=== PATIENT | female | born 2005 | race African-American/Black ===

== ENCOUNTER 2023-06-05 05:46 | Emergency (ER) | payer OTHER, SELFPAY ==
--- NOTE | ~2023-06-05 | US_ITS ---
EXAMINATION: US OB <= 14 weeks fetus DATE: 06/05/2023 08:35 INDICATION: 12-13 weeks was taking medication for EAB TECHNIQUE: Real-time pelvic ultrasound utilizing both a transvaginal and transabdominal probe was pe rformed. The interpreting radiologist was not present for the study. COMPARISON: None. FINDINGS: The uterus measures 4.5 x 4.8 x 6.8 cm. The endometrial complex is thickened with slightly heterogen eous echogenicity. There is a small amount of fluid within the endometrial canal but no gestational s ac. A few punctate echogenic foci likely representing calcification in the myometrium of the anterior uterine body which may be related to prior instrumentation. The right ovary measures 3.6 x 1.7 x 1.6 cm. With intramural lesser flow on color Doppler. The left ovary is not definitively identified. A 4 .4 x 1.1 x 1.1 cm ovoid peripherally hypoechoic, centrally isoechoic mass is seen in the left adnexal region which could represent the left ovary but appears also suggests this could represent an iliac chain lymph node with central fatty hilum. There is no free fluid in the pelvis. IMPRESSION: 1. Thickened heterogeneous endometrial complex without evident internal gestational sac. Differential would include early , failed or ectopic . Correlate with clinical histor y, any prior outside imaging and with serial beta-hCG levels. Reviewed, dictated and finalized at location [facility]. IMPRESSION: 1. Thickened heterogeneous endometrial complex without evident internal gestati onal sac. Differential would include early , failed or ectop ic . Correlate with clinical history, any prior outside imaging and wi th serial beta-hCG levels.
[2023-06-05 05:44] VITALS: BP 166/96; PULSE 84; RESP 15; TEMP 36.6; O2SAT 100
--- NOTE | 2023-06-05 05:59 | ED.GENADULT ---
HPI - General Adult General Chief complaint: Abdominal Pain <Lazaro Ybarra MD - Last Filed: 06/05/23 06:51> Stated complaint: abd pain <Lazaro Ybarra MD - Last Filed: 06/05/23 06:51> Time Seen by Provider: 06/05/23 05:54 <Lazaro Ybarra MD - Last Filed: 06/05/23 06:51> History of Present Illness HPI narrative: Patient 18-year-old female who presents emergency department with chief complaint of abdominal cramping and vaginal bleeding. The patient reports that she was approximately 12-13 weeks and took a oral pill. The patient reports that she has started having severe cramping reports that the pain is not improved by anything and reports that she has had multiple other portions before in the past. <Lazaro Ybarra MD - Last Filed: 06/05/23 06:51> Related Data Allergies/adverse reactions: Allergies Allergy/AdvReac Type Severity Reaction Status Date / Time No Known Allergies Allergy Verified 06/05/23 07:20 <Lazaro Ybarra MD - Last Filed: 06/05/23 06:51> Review of Systems Review of Systems: A 10 system review of systems was completed on the patient and is negative except for what is stated in the HPI. Nursing and ancillary documentation was reviewed. <Lazaro Ybarra MD - Last Filed: 06/05/23 06:51> Exam Narrative: GENERAL: Well-appearing, well-nourished, and in no acute distress. HEAD: Normocephalic, atraumatic. EYES: PERRLA and EOMI. ENT: Nares clear, no rhinorrhea or epistaxis. Mucous membranes moist. NECK: Supple. CHEST: Clear to auscultation. No respiratory distress. HEART: Regular rate and rhythm. No murmur heard. Normal peripheral pulses. ABDOMEN: Soft, nontender, nondistended, normal active bowel sounds. EXTREMITIES: Normal range of motion. No edema. SKIN: Warm, dry, no rash. NEURO: No focal deficits. Alert and oriented x3. PSYCH: Normal mood and affect. <Lazaro Ybarra MD - Last Filed: 06/05/23 06:51> Course Reevaluation(s) Reevaluation #1: 18-year-old female present to the emergency department for evaluation of uterine camping and vaginal bleeding after elective . Patient began having abdominal cramping yesterday at 4:00 p.m.. At time of evaluation patient states that her bleeding has decreased and her cramping has resolved. Patient is afebrile but does have a leukocytosis of 11.9 a stable hemoglobin 11.8. No acute abnormalities on the CMP UA does show some blood patient is O positive. Ultrasound did show progression of the elective . She reports she had a prior ultrasound showing intrauterine gestational sac. [facility] <Malik Hamilton MD - Last Filed: 06/05/23 10:42> Vital Signs Vital signs: Vital Signs Temperature 97.9 F 06/05/23 05:44 Pulse Rate 84 06/05/23 05:44 Respiratory Rate 15 06/05/23 05:44 Blood Pressure 166/96 H 06/05/23 05:44 Pulse Oximetry 100 06/05/23 05:44 Oxygen Delivery Room Air 06/05/23 05:44 Temperature 97.9 F 06/05/23 05:44 Pulse Rate 67 06/05/23 09:32 Respiratory Rate 15 06/05/23 09:32 Blood Pressure 103/61 06/05/23 09:32 Pulse Oximetry 99 06/05/23 09:32 Oxygen Delivery Room Air 06/05/23 05:44 <Lazaro Ybarra MD - Last Filed: 06/05/23 06:51> Vital Signs Temperature 97.9 F 06/05/23 05:44 Pulse Rate 84 06/05/23 05:44 Respiratory Rate 15 06/05/23 05:44 Blood Pressure 166/96 H 06/05/23 05:44 Pulse Oximetry 100 06/05/23 05:44 Oxygen Delivery Room Air 06/05/23 05:44 Temperature 97.9 F 06/05/23 05:44 Pulse Rate 67 06/05/23 09:32 Respiratory Rate 15 06/05/23 09:32 Blood Pressure 103/61 06/05/23 09:32 Pulse Oximetry 99 06/05/23 09:32 Oxygen Delivery Room Air 06/05/23 05:44 <Malik Hamilton MD - Last Filed: 06/05/23 10:42> Medical Decision Making MDM Narrative Medical
[2023-06-05] MEDS: ONDANSETRON INJ 4 MG/2 ML VIAL IV PUSH (06:01)
[2023-06-05] MEDS: SODIUM CHLORIDE 0.9% IV 1,000 ML 999 ML IV CONT (06:04)
[2023-06-05] MEDS: MORPHINE SULFATE (*CRX) 4 MG/ML INJ IV PUSH (06:04)
[2023-06-05 06:13] LABS: Basophils Percent Auto 0.3 % (0.2-1.2); Eosinophils Absolute Auto 0.1 K/mm3 (0-0.3); Eosinophils Percent Auto 0.4 % (0-4.4); Hematocrit 35.9 % (37.0-47.0); Hemoglobin 11.8 g/dL (12.0-15.0); Immature Granulocyte Absolute 0.05 K/mm3 (0.00-0.031); Immature Granulocyte Percent A 0.4 % (0-0.5); Lymphocytes Absolute Auto 2.43 K/mm3 (0.9-3.2); Lymphocytes Percent Auto 20.5 % (18.3-44.2); Mean Corpuscular HGB Conc 32.9 g/dl (32-36); Mean Corpuscular Hemoglobin 26.1 pg (26-34); Mean Corpuscular Volume 79.4 fl (80-100); Mean Platelet Volume 11.5 fl (7.4-10.4); Monocytes Absolute Auto 0.5 K/mm3 (0.1-0.6); Monocytes Percent Auto 4.5 % (2.6-8.5); Neutrophils Absolute Auto 8.8 K/mm3 (1.3-6.7); Neutrophils Percent Auto 73.9 % (45.5-73.1); Platelet Count Result 171 k/mm3 (150-375); Red Blood Count 4.52 M/mm3 (4.2-5.4); White Blood Count 11.9 K/mm3 (4.5-10.0)
[2023-06-05 06:23] LABS: INR 1.1; Prothrombin Time 14.4 Seconds (11.1-14.7)
[2023-06-05 06:26] LABS: Alanine Aminotransferase 16 U/L (6-35); Albumin Level 4.3 g/dL (3.5-5.1); Alkaline Phosphatase 48 U/L (38-126); Anion Gap 6 mmol/L (8-16); Aspartate Amino Transferase 31 U/L (14-36); Bilirubin,Total 0.4 mg/dL (0.2-1.3); Blood Urea Nitrogen 7 mg/dL (7-17); Calcium 9.2 mg/dL (8.4-10.2); Carbon Dioxide 22 mmol/L (22-30); Chloride 108 mmol/L (98-107); Estimated CRCL calculation 96 ml/min; Estimated Glomerular Filt Rate > 60; Glucose 122 mg/dL (65-110); Potassium 3.6 mmol/L (3.4-5.0); Sodium 136 mmol/L (137-145)
[2023-06-05] MEDS: HYDROmorphone HCL INJ (*CRX) 1 MG/ML SYR IV PUSH (06:50)
[2023-06-05 07:19] VITALS: BP 120/84; PULSE 71; RESP 20; O2SAT 100
--- NOTE | 2023-06-05 07:30 | PC.NURSE ---
Pt requesting more pain medicine and Dr Alfonso ELIZONDO made aware, spoke to Scarlett at [facility] who needs a full bladder pt has not voided yet so she states she will be here soon to take pt
--- NOTE | 2023-06-05 07:44 | PC.NURSE ---
pt to [facility] at this time
[2023-06-05 08:32] VITALS: BP 104/57; PULSE 52; RESP 17; O2SAT 98
[2023-06-05 08:57] LABS: Appearance Urine Clear (Clear); Bacteria Urine None Seen /hpf; Bilirubin Urine Negative (Negative); Blood Urine 3+ (Negative); Color Urine Yellow (Yellow); Glucose Urine UA Negative (Negative); Ketones Urine 3+ mg/dL (Negative); Leukocyte Esterase Ur Negative LEU/UL (Negative); Nitrate Urine Negative (Negative); Non Pathogenic Casts 0-2; Protein Urine Negative (Negative); RBC Urine >100 /hpf (0-2); Specific Grav Ur 1.021 (1.001-1.035); Squamous Epithelial Cell Urine None Seen /hpf (Few); Urobilinogen Urine 0.2 mg/dL (<2.0); WBC Urine 0-5 /hpf (0-3); pH Urine 6.5 (5.0-9.0)
[2023-06-05 09:02] LABS: Add Urine Microscopic? YES
[2023-06-05 09:32] VITALS: BP 103/61; PULSE 67; RESP 15; O2SAT 99
== END 2023-06-05 09:34 | disposition home or self-care (01) ==
PROVIDERS: Emergency Provider Emergency Medicine; PCP Emergency Medicine
DX: O03.4 Incomplete spontaneous abortion without complication (principal)
CPT/HCPCS: 36415; 76801; 80053; 84702; 85025; 85461; 85610; 85730; 86850; 86900; 86901; 96361; 96374; 96375; 99284; J1170; J2270; J2405; J7030